=== PATIENT | male | born 1955 | race Caucasian/White ===

== ENCOUNTER 2018-11-19 10:34 | Outpatient (CLI) | payer MEDICAID, SELFPAY ==
[2018-11-19 13:21] LABS: Anion Gap 7.7 mmol/L (3-11); BUN 16 mg/dL (7-18); CO2 29.3 mmol/L (21.0-32.0); CREATININE 1.29 mg/dL (0.70-1.30); Calcium 9.3 mg/dL (8.5-10.1); Chloride 103 mmol/L (98-107); Estimated GFR 56.62 (mL/min/1.73m2); Glucose 91 mg/dL (70-100); Potassium 4.7 mmol/L (3.5-5.1); Sodium 140 mmol/L (136-145)
== END 2018-11-19 10:54 ==
PROVIDERS: PCP Family Medicine; Visit Provider Family Medicine
DX: I10 Essential (primary) hypertension (principal)
CPT/HCPCS: 36415; 80048

== ENCOUNTER 2021-02-20 02:48 | Outpatient (CLI) | payer MEDICAID, SELFPAY ==
[2021-02-20 09:46] LABS: Hemoglobin A1C 5.5 % (<5.7)
[2021-02-20 10:14] LABS: ALT 31 U/L (16-63); AST 16 U/L (15-37); Albumin 3.5 g/dL (3.4-5.0); Alkaline Phosphatase 109 U/L (46-116); Anion Gap 8.8 mmol/L (3-11); BUN 18 mg/dL (7-18); Bilirubin, Total 0.4 mg/dL (0.2-1.0); CO2 26.2 mmol/L (21.0-32.0); CREATININE 1.2 mg/dL (0.70-1.30); Calcium 8.6 mg/dL (8.5-10.1); Calculated LDL 94 mg/dL (<100); Chloride 109 mmol/L (98-107); Cholesterol 186 mg/dL (<200); Glucose 96 mg/dL (74-106); HDL Cholesterol 61 mg/dL (40-60); Potassium 4.2 mmol/L (3.5-5.1); Sodium 144 mmol/L (136-145); Total Protein 6.6 g/dL (6.4-8.2); Triglyceride 158 mg/dL (<150)
== END 2021-02-20 02:49 | disposition home or self-care (01) ==
LOC: LBO 02:48
PROVIDERS: PCP Nurse Practitioner Family; Visit Provider Nurse Practitioner Family
DX: D51.0 Vitamin B12 deficiency anemia due to intrinsic factor deficiency (principal); Z13.220 Encounter for screening for lipoid disorders; Z13.1 Encounter for screening for diabetes mellitus; I10 Essential (primary) hypertension; R97.20 Elevated prostate specific antigen [PSA]
CPT/HCPCS: 36415; 80053; 80061; 83036; 84154

== ENCOUNTER 2021-03-28 14:08 | Outpatient (REF) | payer MEDICAID, SELFPAY ==
[2021-03-28 22:19] LABS: PSA, Diagnostic 10.9 ng/mL (0.0-4.5)
== END 2021-03-28 14:09 | disposition home or self-care (01) ==
LOC: LBN 14:08
PROVIDERS: PCP Nurse Practitioner Family; Visit Provider Nurse Practitioner Gerontology
DX: R97.20 Elevated prostate specific antigen [PSA] (principal)
CPT/HCPCS: 84153

== ENCOUNTER 2021-06-26 02:38 | Outpatient (CLI) | payer MEDICAID, SELFPAY ==
[2021-06-26 17:58] LABS: PSA, Diagnostic 11.4 ng/mL (0.0-4.5)
== END 2021-06-26 02:39 | disposition home or self-care (01) ==
LOC: LBO 02:38
PROVIDERS: PCP Nurse Practitioner Family; Visit Provider Nurse Practitioner Gerontology
DX: R97.20 Elevated prostate specific antigen [PSA] (principal)
CPT/HCPCS: 36415; 84153

== ENCOUNTER 2021-07-13 02:17 | Outpatient (CLI) | payer MEDICAID, SELFPAY ==
--- NOTE | 2021-07-13 08:00 | DI.US_ITS ---
Exam(s) US PROSTATE BIOPSY EXAM: US PROSTATE BIOPSY CLINICAL HISTORY: elevated PSA w/ wt loss,R97.20 TECHNIQUE: Transrectal ultrasound performed using standard protocol. COMPARISON: CT ABD PELVIS WITH CONTRAST from 05/22/2016 CT ABD PELVIS WITH CONTRAST from 05/22/2016 FINDINGS: Ultrasound was provided for Dr. Arias for guidance with performing prostate biopsy. 12 samples were obtained. Prostate volume is calculated at 17 cc. Please see procedure note for details. DATA REPOSITORY:
--- NOTE | 2021-07-13 11:10 | PROST_PTH ---
PATIENT: David Monet LOC: [facility] U#:[id number] AGE/SX: 65/M ROOM: RE07/13/[address]: Kaley Carreno DNP : 1955 BED: DIS: 07/13/2021 SPEC #: [id number] RECD: 07/13/21 12:54 STATUS: GIULIANA WEINSTEIN #: [id number] LORETO: 07/13/21 11:[address]: Kaley Carreno DEPT: Surgical Specimen RECD BY: Awilda Huerta ENTERED: 07/13/21 12:55 SP TYPE: PROST OTHR DR: Kayode Ziegler, [employer] Tissues: 1 - PROSTATE NEEDLE BIOPSY 2 - PROSTATE NEEDLE BIOPSY 3 - PROSTATE NEEDLE BIOPSY 4 - PROSTATE NEEDLE BIOPSY 5 - PROSTATE NEEDLE BIOPSY 6 - PROSTATE NEEDLE BIOPSY 7 - PROSTATE NEEDLE BIOPSY 8 - PROSTATE NEEDLE BIOPSY 9 - PROSTATE NEEDLE BIOPSY 10 - PROSTATE NEEDLE BIOPSY 11 - PROSTATE NEEDLE BIOPSY 12 - PROSTATE NEEDLE BIOPSY Procedures: GROSS AND MICRO LEVEL 4 Comments: [id number]
--- NOTE | 2021-07-13 11:53 | W.PM.OP ---
Date of service: 07/13/21 Time of Service: 11:53 Operative Note Operative Note DATE OF PROCEDURE: 07/13/21 PRE-OP DIAGNOSIS: Elevated PSA POST-OP DIAGNOSIS: same PROCEDURE: Transrectal ultrasound guided biopsy of the prostate SURGEON: Shiv Arias ANESTHESIA TYPE: Local By Surgeon Refer to Anesthesia Record ESTIMATED BLOOD LOSS: 5 PATHOLOGY: other (Laterally directed biopsies of the prostate) COMPLICATIONS: None Patient was transported to: no change Patient's condition: stable Implants: None Indications: This is a 65-year-old gentleman who was identified as having an elevated PSA of 11.4 ng/mL. He presents for ultrasound-guided biopsy of the prostate Findings: Prostate volume 17 cc Procedure Description: The patient is brought to the radiology suite on 07/13/2021. He had been given a preprocedural antibiotic and mechanical prep. He was placed in the left lateral position. Digital rectal exam confirmed the absence of a palpable mass. Transrectal imaging of the prostate was then performed using a variable megahertz transducer. The prostate was imaged in transverse and longitudinal planes. The prostate was quite small with a calculated volume of 17 cc. No hypoechoic areas were seen in the peripheral zone. A periprostatic nerve block was performed using 1% lidocaine without epinephrine. A total of 12 laterally directed biopsies were then taken from the prostate. Each biopsy was labeled and sent to pathology for permanent section. He tolerated this procedure well with no complications. He was cautioned to watch for postprocedural issues such as blood in the urine, blood from the stool, blood in the semen and fever or chills.
== END 2021-07-13 02:37 ==
PROVIDERS: PCP Nurse Practitioner Family; Visit Provider Nurse Practitioner Gerontology
DX: R97.20 Elevated prostate specific antigen [PSA] (principal); C61 Malignant neoplasm of prostate
CPT/HCPCS: 55700; 88305; 76942

== ENCOUNTER 2021-08-15 00:40 | Outpatient (CLI) | payer MEDICAID, SELFPAY ==
--- NOTE | 2021-08-15 07:00 | DI.NM_ITS ---
Exam(s) NM BONE SCAN WHOLE BODY GRP EXAM: NM BONE SCAN WHOLE BODY GRP CLINICAL HISTORY: baseline study - new diagnosis prostate cancer,c61. TECHNIQUE: Injected Dose: 27 mCi Tc-99m MDP Delayed Images: 2-3 hours. COMPARISON: CT CT ABDOMEN PELVIS W from 08/15/2021 FINDINGS: Symmetric axial uptake. Bilateral renal excretion is identified. There is a focus of increased radiot racer uptake at about the L4-L5 level on the right. It appears to correspond to degenerative changes on the right at the L4-L5 disc level as seen on the CT scan of the abdomen and pelvis from the same day. There is a faint area of increased radiotracer uptake on the left in the mid cervical spine. I ts location suggests facet arthropathy. X-ray correlation may be obtained. There is symmetric activ ity in the shoulders which is likely degenerative. No increased radiotracer uptake is seen to sugges t osseous metastatic disease. IMPRESSION: No definite evidence to suggest osseous metastatic disease. Please see the above discussion for comp lete details. DATA REPOSITORY:
--- NOTE | 2021-08-15 07:00 | DI.CT_ITS ---
Exam(s) CT ABDOMEN PELVIS W EXAM: CT ABDOMEN PELVIS W CLINICAL HISTORY: new prostate ca c61, ? mets TECHNIQUE: Imaging Protocol: Axial computed tomography images with coronal and sagittal reformatted images were created and reviewed CONTRAST MATERIAL: Intravenous: Omnipaque 350 Contrast volume:100 mL Oral: Yes COMPARISON: CT ABD PELVIS WITH CONTRAST from 05/22/2016 FINDINGS: ABDOMEN: Lung Bases: Scarring or atelectasis is seen in the lung bases. Liver: Normal density. No measurable mass. Portal, Superior Mesenteric, and Splenic Veins: Unremarkable. Gallbladder and Biliary Tract: No radiodense calculus or dilation. Pancreas: Normal density, no abnormal calcifications or inflammatory process. Spleen: Normal. Adrenals: No masses seen. Kidneys: Normal size, contour and axis. No radiodense stones or obstructive uropathy. No masses seen. Abdominal Aorta: Abdominal portion non-dilated. Atherosclerosis. Bowel: No obstruction or bowel wall thickening. Appendix is unremarkable. Peritoneal Cavity: No ascites, collection or mesenteric inflammatory response. No free air. Lymph Nodes: Within normal limits. Bones: Within normal limits for the patient's age. Soft Tissues: Fat containing right inguinal hernia. PELVIS: Bladder: Symmetric distention, no gross wall thickening. Reproductive Organs: Unremarkable as visualized. Lymph Nodes: Within normal limits. Bones: Within normal limits for the patient's age. IMPRESSION: No evidence of abdominal or pelvic metastatic disease. RADIATION DOSE DELIVERED: 1,144.3mGy.cm Total DLP DATA REPOSITORY: All CT scans at this facility are submitted to the National Radiology Data Registry (NRDR) Dose Index Registry (DIR) with the [employer] (ACR). RADIATION OPTIMIZATION: All CT scans at this facility use at least one of these dose optimization te chniques: automated exposure control; mA and/or kV adjustment per patient size (includes targeted exa ms where dose is matched to clinical indication); or iterative reconstruction.
[2021-08-15] MEDS: Breeza Beverage 473 ML BTL PO (08:55)
[2021-08-15] MEDS: Omnipaque 350 MG/ML 100 ML BTL IV (09:35)
== END 2021-08-15 01:00 ==
PROVIDERS: PCP Nurse Practitioner Family; Visit Provider Urology
DX: C61 Malignant neoplasm of prostate (principal)
CPT/HCPCS: 36415; 78306; 74177; 82565; J3490

== ENCOUNTER 2022-04-11 03:03 | Outpatient (CLI) | payer MEDICARE, MEDICAID, SELFPAY ==
[2022-04-11 10:31] LABS: HCT 45.6 % (40.0-50.0); HGB 15.3 g/dL (13.5-17.5); MCH 29.6 pg (27.0-33.0); MCHC 33.6 % (32.0-36.0); MCV 88 fL (80-95); MPV 9.1 fL (8.0-11.0); Platelet Count 234 10^3/uL (130-400); RBC 5.17 10^6/uL (4.36-5.78); RDW 13.2 % (11.8-14.1); WBC 5.84 10^3/uL (4.4-10.8)
[2022-04-12 13:03] LABS: PSA, Ultrasensitive 3.6 ng/mL (<= 4.5)
== END 2022-04-11 03:04 | disposition home or self-care (01) ==
LOC: LBO 03:03
PROVIDERS: PCP Nurse Practitioner Family; Visit Provider Radiology Radiation Oncology
DX: D51.0 Vitamin B12 deficiency anemia due to intrinsic factor deficiency (principal); C61 Malignant neoplasm of prostate
CPT/HCPCS: 36415; 84153; 85027

== ENCOUNTER 2022-10-15 04:29 | Outpatient (CLI) | payer MEDICARE, SELFPAY ==
[2022-10-16 14:27] LABS: PSA, Ultrasensitive 0.94 ng/mL (<= 4.5)
== END 2022-10-15 04:30 | disposition home or self-care (01) ==
LOC: LBO 04:29
PROVIDERS: PCP Nurse Practitioner Family; Visit Provider Radiology Radiation Oncology
DX: C61 Malignant neoplasm of prostate (principal)
CPT/HCPCS: 36415; 84153

== ENCOUNTER 2023-05-28 03:40 | Outpatient (CLI) | payer MEDICARE, SELFPAY ==
[2023-05-29 17:20] LABS: PSA, Ultrasensitive 1.3 ng/mL (<= 4.5)
[2023-06-02 20:27] LABS: Testosterone, Total 471 ng/dL (240-950)
== END 2023-05-28 03:41 | disposition home or self-care (01) ==
LOC: LBO 03:40
PROVIDERS: PCP Nurse Practitioner Family; Visit Provider Nurse Practitioner Family
DX: C61 Malignant neoplasm of prostate (principal)
CPT/HCPCS: 36415; 84153; 84403

== ENCOUNTER 2023-08-07 14:15 | Outpatient (CLI) | payer MEDICARE, SELFPAY ==
[2023-08-09 09:50] LABS: PSA, Ultrasensitive 0.57 ng/mL (<= 4.5)
== END 2023-08-07 14:16 | disposition home or self-care (01) ==
LOC: LBO 14:15
PROVIDERS: PCP Nurse Practitioner Family; Visit Provider Colon & Rectal Surgery
DX: C61 Malignant neoplasm of prostate (principal)
CPT/HCPCS: 36415; 84153

== ENCOUNTER 2023-12-26 09:56 | Emergency (ER) | payer MEDICARE, SELFPAY ==
[2023-12-26 10:00] VITALS: BP 151/71; PULSE 75; RESP 16; TEMP 36.2; O2SAT 99
--- NOTE | 2023-12-26 10:00 | DI.US_ITS ---
Exam(s) US LOWER EXTREMITY VENOUS RT EXAM: US LOWER EXTREMITY VENOUS RT CLINICAL HISTORY: pain to knee, leg swelling; family hx DVT. TECHNIQUE: Lower extremity venous ultrasound performed using grayscale, color-flow, and spectral Do ppler analysis. COMPARISON: No exams were available for comparison FINDINGS: The common femoral, femoral and popliteal veins demonstrate normal compressibility, augmentation, and color Doppler. The posterior tibial veins are patent. No saphenous vein thrombosis or other superfi cial venous thrombosis is seen. No hematoma or Salamanca's cyst is seen. IMPRESSION: Negative lower extremity ultrasound. No evidence of DVT. DATA REPOSITORY:
--- NOTE | 2023-12-26 10:00 | DI.RAD_ITS ---
Exam(s) XR KNEE RT 3V AP,LAT,CLARISSE EXAM: XR KNEE RT 3V AP,LAT,CLARISSE CLINICAL HISTORY: atraumatic anterior right knee pain. TECHNIQUE: 2D digital imaging was performed. Three views. COMPARISON: No exams were available for comparison FINDINGS: BONES: No acute fracture is present. No bony destructive lesion is seen. JOINTS: The knee is normally aligned. No joint effusion is seen. The joint spaces are maintained. T here is minimal spurring at the articular aspect of the patella. SOFT TISSUE: Normal. IMPRESSION: Minimal degenerative changes. DATA REPOSITORY: RADIATION DOSE DELIVERED:
--- NOTE | 2023-12-26 10:14 | W.ED.GENAD ---
Discharge Plan Disposition Patient Disposition: Home Condition: Improving Discharge Details Chief Complaint: Orthopedic Clinical Impression: Knee pain Primary Care Provider: Kayode Ziegler ED Provider: Nicolás Mccord Home Meds and New Rx's Prescriptions: No Action pantoprazole 40 mg tablet,delayed release (DR/EC) 40 mg PO DAILY PRN (Reason: gastric reflux) Qty: 90 3RF lisinopril 10 mg tablet 10 mg PO DAILY Qty: 90 4RF Discharge Instructions Instructions: Knee Pain (ED) HPI General Date/Time Provider Initiated Documentation: 12/26/23 10:00. HPI Narrative: 68-year-old male presents with 1 week of atraumatic right anterior knee pain, notices mild swelling at times, worsening discomfort as the day goes on, usually asymptomatic in the morning. No fevers no chills. Endorses noticing swelling in his lower extremity, has a family history of DVT Related Data Home Medications Medication Instructions Recorded Confirmed pantoprazole 40 mg tablet,delayed 40 mg PO DAILY PRN gastric reflux 02/20/23 12/26/23 release #90 tabs lisinopril 10 mg tablet 10 mg PO DAILY #90 tab-caps 03/24/23 12/26/23 Previous Rx's Medication Instructions Recorded pantoprazole 40 mg tablet,delayed 40 mg PO DAILY PRN gastric reflux 02/20/23 release #90 tabs lisinopril 10 mg tablet 10 mg PO DAILY #90 tab-caps 03/24/23 Allergies Allergy/AdvReac Type Severity Reaction Status Date / Time No Known Allergies Allergy Verified 12/26/23 10:14 General Stated Complaint: Orthopedic MARÍA: 4 Review of Systems Narrative: Review of Systems Constitutional: negative Eyes: negative ENT: negative Cardiovascular: negative Respiratory: negative Gastrointestinal: negative : negative Musculoskeletal: Knee pain Skin: negative Neurologic: negative Psych: negative Exam Narrative Exam Narrative: Physical Examination General: alert, awake, cooperative, resting comfortably, no acute distress HEENT: normocephalic, atraumatic Skin: no lesions, rashes or trauma appreciated Neuro: AAOx3, normal speech, moving all extremities Extremities: Right lower extremity: Full range of motion flexion extension at knee, no effusion, no joint laxity, no crepitus, no deformity, warm well-perfused sensate limb no appreciable edema; ambulatory without assistance Psych: Appropriate mood and affect Course Vital Signs Vital signs: Vital Signs Temperature 36.2 C L 12/26/23 10:00 Pulse 75 12/26/23 10:00 Respiratory Rate 16 12/26/23 10:00 Blood Pressure 151/71 H 12/26/23 10:00 Pulse Oximetry 99 12/26/23 10:00 Temperature 36.2 C L 12/26/23 10:00 Pulse 75 12/26/23 10:00 Respiratory Rate 16 12/26/23 10:00 Respiratory Effort Normal 12/26/23 10:02 Blood Pressure 151/71 H 12/26/23 10:00 Pulse Oximetry 99 12/26/23 10:00 Medical Decision Making 68-year-old male presents with atraumatic right knee pain over the last week, endorses normal sensation and function of knee in the morning with progressive discomfort as the day goes on, has noted intermittent swelling denies fevers or chills, endorses subjective swelling to right lower extremity, endorses family history of DVT; patient afebrile nontoxic full range of motion of involved limb, neurovascular exam intact, no signs of trauma or infection. Must consider osteoarthritis given history and physical versus soft tissue injury such as ligamentous sprain versus muscular strain must also consider Lyme arthritis, low suspicion for septic joint given afebrile nontoxic patient with full range of motion of limb without effusion or warmth to joint. Low suspicion for DVT given symmetrical lower extremities and localized anterior knee discomfort. No palpable cord. However given family history and patient concern will obtain right lower extremity ultrasound, will obtain screening x-ray of right knee, will obtain Lyme/tick panel. Patient does not want any medication at this time. Disposition pending results of imaging studies 11: 31 patient resting comfortably no acute distress. Degenerative changes on x-ray, negative DVT study. Quality:SDOH Health Related Social Needs: No Data to Display PFSH All Active Problems (Updated 12/26/23 @ 11:31 by Nicolás Mccord MD) Knee pain (Acute) Prostate cancer (Chronic) Actively under treatment. Had radiation summer 2021. Elevated PSA, between 10 and less than 20 ng/ml (Acute) Seborrheic keratosis (Acute) GERD (gastroesophageal reflux disease) (Chronic) Unspecified episodic mood disorder (Chronic 10/09/12) Pernicious anemia (Chronic 10/09/12) Essential hypertension (Chronic 12/09/17) Family History Mother No problems noted. Father No problems noted. Sister No problems noted. Maternal Grandfather , 91 No problems noted. Maternal Grandmother , 90 No problems noted. Paternal Grandmother , 70 No problems noted. Sister No problems noted. Son No problems noted. Daughter No problems noted. Daughter No problems noted. Social History Smoking/Tobacco Use Status: Unknown Smokeless tobacco user: chewing tobacco Second Hand Exposure: Yes Smoking risk assessment performed?: Yes Alcohol Intake: current Alcohol Intake frequency: a few times a week Alcohol type: beer Drug use: Never Substance use type: does not use Caregiver/Support person: Yes Household members: significant other Housing: house Communication Needs: None Do you need help understanding health information?: Never current occupation: [employer] Pets and animals: No Sexually active: Yes Do you think of yourself as: straight/heterosexual Current gender identity: male What is your relationship status?: living with partner How often do you talk on the phone with friends or family?: three or more times per week How often do you get together with friends or relatives?: twice per week How often do you attend episcopalian or pentecostalism services?: 1-3 times per year Do you belong to any clubs or organized social groups?: no Panel score (0-1 are the most socially isolated patients): 2 What type of physical activity do you participate in: other Details: Working Duration: > 90 minutes/day Frequency: daily Special alvaro needs: No Seatbelt use: always Helmet use: Yes Helmet use: sometimes Drive intox or ride w/intox driver's education instructor: No
[2023-12-29 11:44] LABS: Lyme Ab w Rflx to Lyme Confirm Negative (Negative)
[2023-12-29 15:48] LABS: Anaplasma phagocytophilum Negative (Negative); B. miyamotoi PCR Negative (Negative); Babesia divergens/MO-1 Negative (Negative); Babesia duncani Negative (Negative); Babesia microti Negative (Negative); Ehrlichia chaffeensis Negative (Negative); Ehrlichia ewingii/canis Negative (Negative); Ehrlichia muris eauclairensis Negative (Negative)
== END 2023-12-26 11:36 | disposition home or self-care (01) ==
PROVIDERS: Emergency Provider Emergency Medicine; PCP Nurse Practitioner Family
DX: M25.561 Pain in right knee (principal); M25.461 Effusion, right knee; I10 Essential (primary) hypertension
CPT/HCPCS: 36415; 73562; 87798; 99284; 86618; 93971; 99283

== ENCOUNTER 2024-02-20 01:56 | Outpatient (CLI) | payer MEDICARE, SELFPAY ==
[2024-02-23 15:13] LABS: PSA, Ultrasensitive 0.18 ng/mL (<= 4.5)
== END 2024-02-20 01:57 | disposition home or self-care (01) ==
LOC: LOS 01:56
PROVIDERS: PCP Nurse Practitioner Family; Visit Provider Colon & Rectal Surgery
DX: C61 Malignant neoplasm of prostate (principal)
CPT/HCPCS: 36415; 84153

== ENCOUNTER 2024-02-23 10:19 | Outpatient (CLI) | payer MEDICARE, SELFPAY ==
[2024-02-23 12:46] LABS: CREATININE 1.1 mg/dL (0.70-1.30); Calculated LDL 125 mg/dL (<100); Cholesterol 222 mg/dL (<200); Estimated GFR 73.58 (mL/min/1.73m2); HDL Cholesterol 82 mg/dL (40-60); Potassium 4.1 mmol/L (3.5-5.1); Triglyceride 79 mg/dL (<150)
== END 2024-02-23 10:20 | disposition home or self-care (01) ==
LOC: LOS 10:19
PROVIDERS: PCP Nurse Practitioner Family; Referring Provider Nurse Practitioner Family; Visit Provider Nurse Practitioner Family
DX: I10 Essential (primary) hypertension (principal); Z13.6 Encounter for screening for cardiovascular disorders
CPT/HCPCS: 36415; 80061; 82565; 84132

== ENCOUNTER 2024-05-07 16:06 | Outpatient (REF) | payer MEDICARE, SELFPAY ==
--- NOTE | 2024-05-07 11:20 | SKI_PTH ---
PATIENT: David Monet LOC: [facility] U#:[id number] AGE/SX: 68/M ROOM: RE05/07/[address]: NJ Harris : 1955 BED: DIS: 05/07/2024 SPEC #: [id number] RECD: 05/07/24 17:30 STATUS: GIULIANA REZeferino #: [id number] LORETO: 05/07/24 11:[address]: Tristen Allen DEPT: Surgical Specimen RECD BY: Awilda Huerta ENTERED: 05/07/24 17:30 SP TYPE: YOLANDA BARNHART DR: Kayode Ziegler, CHRIS Tissues: 1 - SKIN BIOPSY(SHAVE/PUNCH) Procedures: IMMUNOPEROXIDASE STAIN SKIN LEVEL 4 Comments: [id number]
== END 2024-05-07 16:07 | disposition home or self-care (01) ==
LOC: LBN 16:06
PROVIDERS: PCP Nurse Practitioner Family; Visit Provider Physician Assistant
DX: D22.4 Melanocytic nevi of scalp and neck (principal)
CPT/HCPCS: 88305; 88361

== ENCOUNTER 2024-06-08 03:54 | Outpatient (CLI) | payer MEDICARE, SELFPAY ==
[2024-06-09 11:34] LABS: Lyme Ab w Rflx to Lyme Confirm Negative (Negative)
[2024-06-10 22:06] LABS: Anaplasma phagocytophilum Negative (Negative); B. miyamotoi PCR Negative (Negative); Babesia divergens/MO-1 Negative (Negative); Babesia duncani Negative (Negative); Babesia microti Negative (Negative); Ehrlichia chaffeensis Negative (Negative); Ehrlichia ewingii/canis Negative (Negative); Ehrlichia muris eauclairensis Negative (Negative)
== END 2024-06-08 03:55 | disposition home or self-care (01) ==
LOC: LOS 03:56
PROVIDERS: PCP Nurse Practitioner Family; Referring Provider Nurse Practitioner Family; Visit Provider Nurse Practitioner Family
DX: R21 Rash and other nonspecific skin eruption (principal)
CPT/HCPCS: 36415; 87798; 86618

== ENCOUNTER 2024-06-11 11:37 | Outpatient (REF) | payer MEDICARE, SELFPAY ==
--- NOTE | 2024-06-11 08:18 | SKI_PTH ---
PATIENT: David Monet LOC: [facility] U#:[id number] AGE/SX: 68/M ROOM: RE06/11/[address]: Calvin Campo MD : 1955 BED: DIS: 06/11/2024 SPEC #: [id number] RECD: 06/11/24 17:58 STATUS: GIULIANA REZeferino #: [id number] LORETO: 06/11/24 08:[address]: Calvin Campo DEPT: Surgical Specimen RECD BY: Awilda Huerta ENTERED: 06/11/24 17:58 SP TYPE: YOLANDA BARNHART DR: Kayode Ziegler, CHRIS Tissues: 1 - SKIN BIOPSY(SHAVE/PUNCH) Procedures: IMMUNOPEROXIDASE STAIN SKIN LEVEL 4 Comments: [id number]
== END 2024-06-11 11:38 | disposition home or self-care (01) ==
LOC: NCHCN 11:37
PROVIDERS: PCP Nurse Practitioner Family; Visit Provider Otolaryngology
DX: D22.62 Melanocytic nevi of left upper limb, including shoulder (principal)
CPT/HCPCS: 88305; 88361

== ENCOUNTER 2024-09-07 02:19 | Outpatient (CLI) | payer MEDICARE, SELFPAY ==
[2024-09-09 14:41] LABS: PSA, Ultrasensitive 0.14 ng/mL (<= 4.5)
== END 2024-09-07 02:20 | disposition home or self-care (01) ==
LOC: LOS 02:19
PROVIDERS: PCP Nurse Practitioner Family; Visit Provider Physician Assistant
DX: C61 Malignant neoplasm of prostate (principal)
CPT/HCPCS: 36415; 84153

== ENCOUNTER 2024-09-10 13:13 | Outpatient (REF) | payer MEDICARE, SELFPAY ==
--- NOTE | 2024-09-10 08:35 | SKI_PTH ---
PATIENT: David Monet LOC: [facility] U#:[id number] AGE/SX: 68/M ROOM: RE09/10/[address]: NJ Harris : 1955 BED: DIS: 09/10/2024 SPEC #: [id number] RECD: 09/10/24 17:13 STATUS: GIULIANA REZeferino #: [id number] LORETO: 09/10/24 08:[address]: Tristen Allen DEPT: Surgical Specimen RECD BY: Awilda Huerta ENTERED: 09/10/24 17:14 SP TYPE: YOLANDA BARNHART DR: Kayode Ziegler, HOSPITAL ADMISSIONS CLERK Tissues: 1 - SKIN BIOPSY(SHAVE/PUNCH) 2 - SKIN BIOPSY(SHAVE/PUNCH) Procedures: SKIN LEVEL 4 Comments: [id number]
== END 2024-09-10 13:14 | disposition home or self-care (01) ==
LOC: LBN 13:13
PROVIDERS: PCP Nurse Practitioner Family; Visit Provider Physician Assistant
DX: D22.9 Melanocytic nevi, unspecified (principal); D49.2 Neoplasm of unspecified behavior of bone, soft tissue, and skin; L82.1 Other seborrheic keratosis; Z12.83 Encounter for screening for malignant neoplasm of skin; L91.8 Other hypertrophic disorders of the skin
CPT/HCPCS: 88305

== ENCOUNTER 2025-03-16 03:43 | Outpatient (CLI) | payer MEDICARE, MEDICAID, SELFPAY ==
[2025-03-16 14:14] LABS: Anion Gap 7.0 mmol/L (3-11); BUN 19 mg/dL (7-18); CO2 28.0 mmol/L (21.0-32.0); Calcium 9.2 mg/dL (8.5-10.1); Calculated LDL 107 mg/dL (<100); Chloride 105 mmol/L (98-107); Cholesterol 204 mg/dL (<200); Estimated GFR 59.84 (mL/min/1.73m2); Glucose 89 mg/dL (74-106); HDL Cholesterol 69 mg/dL (>or=40); Potassium 4.0 mmol/L (3.5-5.1); Sodium 140 mmol/L (136-145); Triglyceride 144 mg/dL (<150)
== END 2025-03-16 03:44 | disposition home or self-care (01) ==
PROVIDERS: PCP Nurse Practitioner Family; Visit Provider Physician Assistant
DX: Z13.6 Encounter for screening for cardiovascular disorders (principal); Z13.1 Encounter for screening for diabetes mellitus; C61 Malignant neoplasm of prostate
CPT/HCPCS: 36415; 80048; 80061; 84153

== ENCOUNTER → 2025-07-29 02:47 | Outpatient (CLI) | payer MEDICARE, SELFPAY ==
--- NOTE | 2025-07-29 10:47 | DI.RAD_ITS ---
Exam(s) XR HIP LT COMPLETE AP PELVIS EXAM: XR HIP LT COMPLETE AP PELVIS CLINICAL HISTORY: LT HIP PAIN,M25.552. TECHNIQUE: 2D digital imaging was performed. Two views. COMPARISON: NM NM BONE SCAN WHOLE BODY GRP from 08/15/[address] ABDOMEN PELVIS W from 08/15/2021 FINDINGS: BONES: No acute fracture is present. There is a chronic circumscribed lucency noted in the left ischium. Stable bone island in the left ilium. No bony destructive lesion is seen. There are degenerate subchondral cysts in the left femoral head. JOINTS: No dislocation present. The SI joints and pubic symphysis are intact. There is moderate narrowing of the left superior hip joint space. There is prominent spurring at the acetabulum and margin of the femoral head. SOFT TISSUE: Metallic densities projecting in the region of prostate gland. IMPRESSION: Moderate to severe degenerative changes of the left hip. DATA REPOSITORY: RADIATION DOSE DELIVERED:
--- NOTE | 2025-07-29 10:47 | DI.RAD_ITS ---
Exam(s) XR LUMBAR SPINE COMPLETE EXAM: XR LUMBAR SPINE COMPLETE CLINICAL HISTORY: LOW BACK PAIN RADIATING DOWN LT SIDE,M54.50. TECHNIQUE: 2D digital imaging was performed. Five views. COMPARISON: No exams were available for comparison FINDINGS: BONES: No fracture or destructive lesion. Vertebral body heights are maintained. Facet degenerative changes are present greatest at L4-5 and L5-S1. DISKS: There is moderate to severe narrowing of the disc space, eccentric toward the left where there are prominent endplate osteophytes. Similar moderate to severe disc space narrowing, eccentric toward the left is also noted at L3-4. There is severe narrowing of the L4-5 disc space and prominent endplate osteophytes, more prominent on the right side. Mild narrowing of the L5-S1 disc space.. SOFT TISSUE: Normal. IMPRESSION: Multilevel degenerative disc changes and mild scoliosis DATA REPOSITORY: RADIATION DOSE DELIVERED:
== END ==
LOC: DI 02:47
PROVIDERS: PCP Nurse Practitioner Family; Visit Provider Nurse Practitioner Family
DX: M54.50 Low back pain, unspecified (principal); M25.552 Pain in left hip
CPT/HCPCS: 72110; 73502

== ENCOUNTER 2025-08-22 15:53 | Outpatient (CLI) | payer MEDICARE, SELFPAY ==
--- NOTE | 2025-08-22 13:15 | DI.RAD_ITS ---
Exam(s) XR TIB/FIB LT EXAM: XR TIB/FIB LT CLINICAL HISTORY: left leg pain. TECHNIQUE: 2D digital imaging was performed. Two views. COMPARISON: [facility] BONE SCAN WHOLE BODY GRP from 08/15/2021 FINDINGS: BONES: No acute fracture is present. No bony destructive lesion is seen. Visualized portion of knee and ankle joints are unremarkable. SOFT TISSUE: Normal. IMPRESSION: Unremarkable radiographs of the left tibia and fibula. DATA REPOSITORY: RADIATION DOSE DELIVERED:
== END 2025-08-22 15:54 | disposition home or self-care (01) ==
LOC: DIORS 15:54
PROVIDERS: PCP Nurse Practitioner Family; Referring Provider Nurse Practitioner Family; Visit Provider Student in an Organized Health Care Education/Training Program
DX: M16.12 Unilateral primary osteoarthritis, left hip (principal)
CPT/HCPCS: 99214; 73590